=== PATIENT | male | born 1965 | race Caucasian/White ===

== ENCOUNTER 2018-02-09 11:24 | Observation (INO) | payer SELFPAY ==
[~2018-02-09] VITALS: Ht 170.2 cm; Wt 61.0 kg
[~2018-02-09 11:24] MED LIST: AMOX600S PO; CHLO25CA PO; RANI150 PO; Z.0.NO CURRENT MEDS; [UNRECOGNIZED DRUG - OTHER]
[2018-02-09] MEDS ORDERED: IOHEXOL 350 MG/ML 10 ML VIAL (for RAD DIAG) IVCONTRAST ONE (11:25)
[2018-02-09 11:48] VITALS: BP 155/97; PULSE 76; RESP 17; TEMP 99; O2SAT 96
[2018-02-09] MEDS ORDERED: SODIUM CHLOR 0.9% 1000 ML INJ 1,000 ML IV ONE (12:30)
[2018-02-09] MEDS ORDERED: TETANUS/DIPHTHERIA TOXOID ADULT 0.5 ML VIAL IM ONE (12:30)
[2018-02-09 12:56] LABS: AUTOMATED NEUTROPHIL # 9.9 TH/MM3 (1.8-7.7); BASOPHIL # 0.1 TH/MM3 (0-0.2); BASOPHIL % 0.5 % (0.0-2.0); EOSINOPHIL # 0.1 TH/MM3 (0-0.4); EOSINOPHIL % 0.5 % (0.0-4.0); HEMATOCRIT 50.3 % (39.0-51.0); HEMOGLOBIN 17.3 GM/DL (13.0-17.0); LYMPH % 18.7 % (9.0-44.0); LYMPHOCYTE # 2.6 TH/MM3 (1.0-4.8); MEAN CELL VOLUME 101.8 FL (80.0-100.0); MEAN CORPUSCULAR HEMOGLOBIN 35.1 PG (27.0-34.0); MEAN CORPUSCULAR HGB CONC 34.5 % (32.0-36.0); MEAN PLATELET VOLUME 9.5 FL (7.0-11.0); MONO % 8.6 % (0.0-8.0); MONOCYTE # 1.2 TH/MM3 (0-0.9); NEUT % 71.7 % (16.0-70.0); PLATELET COUNT 267 TH/MM3 (150-450); RED BLOOD COUNT 4.94 MIL/MM3 (4.50-5.90); WHITE BLOOD COUNT 13.8 TH/MM3 (4.0-11.0)
[2018-02-09 13:04] VITALS: RESP 16; O2SAT 97
[2018-02-09 13:12] LABS: AST (GOT) 19 U/L (15-37); BICARBONATE 24.1 MEQ/L (21.0-32.0); BLOOD UREA NITROGEN 7 MG/DL (7-18); CALCIUM 9.8 MG/DL (8.5-10.1); CHLORIDE 102 MEQ/L (98-107); CREATININE 0.83 MG/DL (0.60-1.30); GLOMERULAR FILTRATION RATE 97 ML/MIN (>89); GLUCOSE,RANDOM 74 MG/DL (74-106); MAGNESIUM 1.9 MG/DL (1.5-2.5); SODIUM (NA) 140 MEQ/L (136-145)
[2018-02-09 13:13] LABS: ALT (GPT) 33 U/L (12-78)
--- NOTE | 2018-02-09 13:14 | PD ---
HPI Chief Complaint: Syncope/Near-Syncope Time Seen by Provider: 12:00 Travel History International Travel<30 days: No Contact w/Intl Traveler<30days: No Traveled to known affect area: No History of Present Illness HPI 53-year-old male that presents to the ED for evaluation of syncope and dizziness since Thursday. Per patient on Thursday he was working he started feeling dizzy. Per patient he got lightheaded and he was able to sit down and symptoms resolved. Continue working and he finishes work and when to a bar where he had a couple drinks. Per patient he was talking on the phone and that is all he remembers. Per patient he woke up on the floor. He denies any chest pain or shortness of breath. Denies anything relating to the symptoms. Per patient is been feeling "weird" since this has not been able to really get up or do any work because of this. No history of this in the past. Denies any medical history. Does smoke. Denies any history of cardiac disease. States having pain on his right eyelid. He does not know his last tetanus booster. No other medical issues. No drug use. He denies any other syncopal episodes since that time. Per patient he came here today because the symptoms of feeling "weird" I am not resolved when his friend was concerned about what could happen on the syncopal episode. PFSH Past Medical History Arthritis: No Asthma: No Autoimmune Disease: No Blood Disorders: No Anxiety: No Depression: No Heart Rhythm Problems: No Cancer: No Cardiovascular Problems: Yes High Cholesterol: No Chemotherapy: No Chest Pain: No Congestive Heart Failure: No COPD: No Cerebrovascular Accident: No Diabetes: No Diminished Hearing: No Endocrine: No GERD: No Glaucoma: No Genitourinary: No Headaches: No Hepatitis: No Hiatal Hernia: No Hypertension: No Immune Disorder: No Kidney Stones: No Musculoskeletal: No Neurologic: No Psychiatric: No Reproductive: No Respiratory: No Migraines: No Myocardial Infarction: No Radiation Therapy: No Renal Failure: No Seizures: No Sickle Cell Disease: No Sleep Apnea: No Thyroid Disease: No Ulcer: Yes Tetanus Vaccination: > 5 Years Past Surgical History Abdominal Surgery: No AICD: No Appendectomy: No Arteriovenous Shunt: No Cardiac Surgery: No Cholecystectomy: No Ear Surgery: No Endocrine Surgery: No Eye Surgery: No Genitourinary Surgery: No Gynecologic Surgery: No Insulin Pump: No Joint Replacement: No Oral Surgery: Yes (jaw) Pacemaker: No Thoracic Surgery: No Social History Alcohol Use: Yes (beer 12 pack per day) Tobacco Use: Yes (1 pack per day) Substance Use: Yes (marijuana) Allergies-Medications (Allergen,Severity, Reaction): Coded Allergies: No Known Allergies (Verified Allergy, Unknown, 02/09/18) Reported Meds & Prescriptions Reported Meds & Active Scripts Active No Active Prescriptions or Reported Medications Review of Systems Except as stated in HPI: all other systems reviewed are Neg Physical Exam Narrative GENERAL: SKIN: Warm and dry. HEAD: Atraumatic. Normocephalic. EYES: Pupils equal and round 4 mm reactive to light and accommodation. No scleral icterus. No injection or drainage. EOM intact bilaterally. Peripheral vision intact bilaterally. Patient does have bruising and swelling noted on the right orbit. Patient has a laceration which is about 1 cm on the temporal aspect which is already healing. Appears to be old. No sign of obvious purulence or mass noted. ENT: No nasal bleeding or discharge. Mucous membranes pink and moist. Tongue is midline. No uvula deviation. NECK: Trachea midline. No JVD. CARDIOVASCULAR: Regular rate and rhythm. No murmurs, S3, S4. RESPIRATORY: No accessory muscle use. Clear to auscultation. Breath sounds equal bilaterally. GASTROINTESTINAL: Abdomen soft, non-tender, nondistended. Hepatic and splenic margins not palpable. MUSCULOSKELETAL: Extremities without clubbing, cyanosis, or edema. No obvious deformities. Full range of motion of the upper and lower extremities bilaterally. 2+ pulses bilaterally. NEUROLOGICAL: Awake and alert. No obvious cranial nerve deficits. Motor grossly within normal limits. Five out of 5 muscle strength in the arms and legs. Normal speech. PSYCHIATRIC: Appropriate mood and affect; insight and judgment normal. Data Data Last Documented VS Vital Signs Date Time Temp Pulse Resp B/P (MAP) Pulse Ox O2 Delivery O2 Flow Rate FiO2 02/09/18 13:49 87 14 167/96 (119) 97 Room Air 02/09/18 11:48 99.0 Orders Orders Electrocardiogram (02/09/18 12:21) Complete Blood Count With Diff (02/09/18 12:21) Comprehensive Metabolic Panel (02/09/18 12:21) Ckmb (Isoenzyme) Profile (02/09/18 12:21) Troponin I (02/09/18 12:21) Magnesium (Mg) (02/09/18 12:21) Thyroid Stimulating Hormone (02/09/18 12:21) Chest, Single Ap (02/09/18 12:21) Ct Brain W/O Iv Contrast(Rout) (02/09/18 12:21) Iv Access Insert/Monitor (02/09/18 12:21) Ecg Monitoring (02/09/18 12:21) Oximetry (02/09/18 12:21) Orthostatic Vital Signs (02/09/18 12:21) Tetanus/Diphtheria Tox Adult (Tetanus/Di (02/09/18 12:30) Sodium Chlor 0.9% 1000 Ml Inj (Ns 1000 M (02/09/18 12:30) Ct Facial Bones W Iv Contrast (02/09/18 ) Iohexol 350 Inj (Omnipaque 350 Inj) (02/09/18 11:25) Clindamycin 600 Mg/Ns Premix (Cleocin 60 (02/09/18 16:00) Nicotine 14 Mg Patch.24 Hr (Habitrol 14 (02/09/18 16:45) Admit Order (Ed Use Only) (02/09/18 16:45) Labs Laboratory Tests Test 02/09/18 12:30 White Blood Count 13.8 TH/MM3 Red Blood Count 4.94 MIL/MM3 Hemoglobin 17.3 GM/DL Hematocrit 50.3 % Mean Corpuscular Volume 101.8 FL Mean Corpuscular Hemoglobin 35.1 PG Mean Corpuscular Hemoglobin Concent 34.5 % Red Cell Distribution Width 13.0 % Platelet Count 267 TH/MM3 Mean Platelet Volume 9.5 FL Neutrophils (%) (Auto) 71.7 % Lymphocytes (%) (Auto) 18.7 % Monocytes (%) (Auto) 8.6 % Eosinophils (%) (Auto) 0.5 % Basophils (%) (Auto) 0.5 % Neutrophils # (Auto) 9.9 TH/MM3 Lymphocytes # (Auto) 2.6 TH/MM3 Monocytes # (Auto) 1.2 TH/MM3 Eosinophils # (Auto) 0.1 TH/MM3 Basophils # (Auto) 0.1 TH/MM3 CBC Comment DIFF FINAL Differential Comment Blood Urea Nitrogen 7 MG/DL Creatinine 0.83 MG/DL Random Glucose 74 MG/DL Total Protein 8.3 GM/DL Albumin 4.0 GM/DL Calcium Level 9.8 MG/DL Magnesium Level 1.9 MG/DL Alkaline Phosphatase 172 U/L Aspartate Amino Transf (AST/SGOT) 19 U/L Alanine Aminotransferase (ALT/SGPT) 33 U/L Total Bilirubin 0.7 MG/DL Sodium Level 140 MEQ/L Potassium Level 3.5 MEQ/L Chloride Level 102 MEQ/L Carbon Dioxide Level 24.1 MEQ/L Anion Gap 14 MEQ/L Estimat Glomerular Filtration Rate 97 ML/MIN Total Creatine Kinase 100 U/L Troponin I LESS THAN 0.02 NG/ML Thyroid Stimulating Hormone 3rd Gen 0.739 uIU/ML MDM Medical Decision Making Medical Screen Exam Complete: Yes Emergency Medical Condition: Yes Medical Record Reviewed: Yes Interpretation(s) CBC & BMP Diagram 02/09/18 12:30 Total Protein 8.3 H, Albumin 4.0, Calcium Level 9.8, Magnesium Level 1.9, Alkaline Phosphatase 172 H, Aspartate Amino Transf (AST/SGOT) 19, Alanine Aminotransferase (ALT/SGPT) 33, Total Bilirubin 0.[address] 02/09/18 1221 Signed Impressions: CONCLUSION: Chest X-Ray 02/09/18 1221 Signed Impressions: CONCLUSION: No acute pulmonary infiltrates Maxillofacial CT 02/09/18 0000 Signed Impressions: CONCLUSION: troponin and CKMB negative EKG shows sinus rhythm with no sign of acute ischemia or arrhythmia read by me and attending. Differential Diagnosis Syncope versus dizziness versus head injury versus orthostatic hypotension versus cellulitis versus laceration versus normal exam Narrative Course 52-year-old male that presents to the ED for evaluation of syncope and head injury. Patient was properly examined and was found to have signs and symptoms appear to be consistent with head injury and syncope. Unclear etiology of the syncope as patient does not have really any medical history other than smoking history. He does not personally have risk factors for cardiac disease. At this time labs and imaging were ordered. Patient was given tetanus booster. Labs and imaging showed no sign of acute disease other than what appears to be pearly tonsillitis. Patient was on clindamycin. Case was discussed with my attending who recommends admission for syncope. Case discussed with Dr. Urbina who agreed to admission. Diagnosis Primary Impression: Syncope Qualified Codes: R55 - Syncope and collapse Additional Impression: Periorbital cellulitis Qualified Codes: L03.213 - Periorbital cellulitis Admitting Information Admitting Physician Requests: Observation Scripts No Active Prescriptions or Reported Meds Sunday Bose February 09, 2018 13:14
[2018-02-09 13:22] LABS: ALKALINE PHOSPHATASE 172 U/L (45-117); TOTAL BILIRUBIN ADULT 0.7 MG/DL (0.2-1.0); TOTAL PROTEIN 8.3 GM/DL (6.4-8.2); TROPONIN I LESS THAN 0.02 NG/ML (0.02-0.05)
--- NOTE | 2018-02-09 13:34 | RADRPT ---
EXAM DATE: 02/09/2018 1:10 PM EDT AGE/SEX: 52 years / Male INDICATIONS: Passed out 3 days ago, vertigo, some chest pain 1 month ago CLINICAL DATA: This is the patient's initial encounter. Patient reports that signs and symptoms have been present for 3 days and indicates a pain score of 0/10. MEDICAL/SURGICAL HISTORY: None. None. COMPARISON: No prior [facility] exams available for comparison. FINDINGS: A single AP view of the chest demonstrates the lungs to be symmetrically aerated without e vidence of mass, infiltrate or effusion. The cardiomediastinal contours are unremarkable. Osseous s tructures are intact. CONCLUSION: No acute pulmonary infiltrates Electronically signed by: Michael Spears MD 02/09/2018 1:33 PM EDT
[2018-02-09 13:49] VITALS: BP 167/96; PULSE 87; RESP 14; O2SAT 97
--- NOTE | 2018-02-09 14:03 | EKG ---
Date Performed: 02/09/2018 Time Performed: 12:00:24 PTAGE: 52 years EKG: Baseline artifact present Sinus rhythm NORMAL ECG I see no definite change although present EKG has significant artifact. DOCTOR: Chuck Garza Interpretating Date/Time 02/09/2018 14:02:29
--- NOTE | 2018-02-09 15:01 | RADRPT ---
EXAM DATE: 02/09/2018 2:51 PM EDT AGE/SEX: 52 years / Male INDICATIONS: SYNCOPAL EPISODE FELL AND HIT HEAD CLINICAL DATA: This is the patient's initial encounter. Patient reports that signs and symptoms have been present for 1 day and indicates a pain score of 0/10. MEDICAL/SURGICAL HISTORY: Cardiovascular disease. None. RADIATION DOSE: 43.10 CTDI (mGy) COMPARISON: No prior [facility] exams available for comparison. TECHNIQUE: CT of the head without contrast. Using automated exposure control and adjustment of the mA and/or kV according to patient size, radiation dose was kept as low as reasonably achievable to ob tain optimal diagnostic quality images. FINDINGS: Ventricles are symmetric and normal. No abnormal extra-axial fluid accumulation is identif ied. There is no evidence of intracranial mass or hemorrhage. There is nothing to suggest acute infar ction. Extracranial structures are benign in intact. CONCLUSION: No acute intracranial findings Electronically signed by: Rocael Marrero MD 02/09/2018 3:00 PM EDT
--- NOTE | 2018-02-09 15:47 | RADRPT ---
EXAM DATE: 02/09/2018 3:40 PM EDT AGE/SEX: 52 years / Male INDICATIONS: Fall right eye lid swelling, cellulitis CLINICAL DATA: This is the patient's initial encounter. Patient reports that signs and symptoms have been present for 1 day and indicates a pain score of 2/10. MEDICAL/SURGICAL HISTORY: Cardiovascular disease. None. RADIATION DOSE: 59.61 CTDI (mGy) COMPARISON: No prior [facility] exams available for comparison. TECHNIQUE: Contiguous images in the axial and coronal planes were obtained using helical multirow de tector technique with 71 ml Omnipaque 350 (iohexol) nonionic water-soluble contrast as a single exam dose. Using automated exposure control and adjustment of the mA and/or kV according to patient size , radiation dose was kept as low as reasonably achievable to obtain optimal diagnostic quality images . FINDINGS: There is subcutaneous edema and indurative changes in the soft tissues of the for head jean carlos [facility] bridge right periorbital and right cheek regions. No evidence of abscess. No evidence of postsepta l cellulitis changes in the right eye. The bony elements are intact without evidence of fracture or d estructive change. There is minimal polypoid mucosal disease in the facial sinuses, mainly left maxillary antrum. Mild n prieto septal deviation is present. CONCLUSION: 1. No evidence of acute bony process. 2. Superficial cellulitis of the periorbital region and right face. Electronically signed by: Rocael Marrero MD 02/09/2018 3:45 PM EDT
[2018-02-09] MEDS ORDERED: CLINDAMYCIN 600 MG/NS PREMIX 50 ML IV ONE (16:00)
[2018-02-09 16:33] VITALS: BP 162/104; PULSE 87; RESP 16; O2SAT 95
[2018-02-09] MEDS ORDERED: NICOTINE 14 MG/24 HR PATCH T-DERMAL ONE (16:45)
[2018-02-09] MEDS: SODIUM CHLOR 0.9% 1000 ML INJ 1,000 ML IV SCH (17:03)
--- NOTE | 2018-02-09 18:08 | RADRPT ---
EXAM DATE: 02/09/2018 5:59 PM EDT AGE/SEX: 52 years / Male INDICATIONS: Syncope. CLINICAL DATA: This is the patient's initial encounter. Patient reports that signs and symptoms have been present for 1 day and indicates a pain score of 0/10. MEDICAL/SURGICAL HISTORY: . Ulcer. Heartburn. Back problems. . Jaw surgery. COMPARISON: No prior [facility] exams available for comparison. VELOCITY PARAMETERS: ICA/CCA Ratio: Right 0.7 , Left 1.0 ICA: Right 72.5 cm/sec, Left 81.6 cm/sec CCA: Right 109.7 cm/sec, Left 83.8 cm/sec ECA: Right 91.9 cm/sec, Left 72.4 cm/sec Vertebral: Right 49.3 cm/sec antegrade, Left 62.5 cm/sec anterograde FINDINGS: Right Carotid: Minimal atherosclerotic plaquing in the carotid bulb. The waveforms are within enrrique l limits. Left Carotid: Minimal atherosclerotic plaquing in the carotid bulb. The waveforms are within normal limits. Other: None. CONCLUSION: 1. Minimal atherosclerotic plaquing in both carotid bulbs. 2. Otherwise negative. No sonographic or Doppler findings of a hemodynamically significant stenosis. Antegrade flow in both vertebral arteries. Electronically signed by: Rashaun Bella MD 02/09/2018 6:07 PM EDT
[2018-02-09 18:19] LABS: ALBUMIN 3.6 GM/DL (3.4-5.0); ALT (GPT) 29 U/L (12-78); AST (GOT) 17 U/L (15-37); BICARBONATE 28.7 MEQ/L (21.0-32.0); BLOOD UREA NITROGEN 6 MG/DL (7-18); CALCIUM 8.7 MG/DL (8.5-10.1); CHLORIDE 104 MEQ/L (98-107); CREATININE 0.81 MG/DL (0.60-1.30); GLOMERULAR FILTRATION RATE 100 ML/MIN (>89); GLUCOSE,RANDOM 116 MG/DL (74-106); SODIUM (NA) 141 MEQ/L (136-145)
[2018-02-09 18:22] LABS: ALKALINE PHOSPHATASE 157 U/L (45-117); TOTAL BILIRUBIN ADULT 0.8 MG/DL (0.2-1.0); TOTAL PROTEIN 7.5 GM/DL (6.4-8.2); TROPONIN I LESS THAN 0.02 NG/ML (0.02-0.05)
--- NOTE | 2018-02-09 18:27 | HHI.HP ---
[facility] Primary Care Physician No Primary Care Physician Admission Diagnosis acute syncope, periorbital cellulitis Diagnoses: Chief Complaint: Syncope Travel History International Travel<30 Days: No Contact w/Intl Traveler <30 Da: No Traveled to Known Affected Are: No History of Present Illness 52 years old male with no significant past medical history presented to the ED after he had a syncope. Patient stated he felt dizzy at home earlier today when he went home and started drinking about 3-4 drinks Plan: He did not remember anything after that, obviously patient blacked out and he hit his right sided face, he was found on the pavement of the backyard by his neighbor and brought to the hospital. Patient denied feeling any chest pain dizziness lightheaded or short of breath prior to the episodes, not sure how long he was unconscious patient does have ecchymosis and hematoma around his right cheek and laceration by the right eye. No obvious seizure like signs or postictal signs. Patient denied any significant past medical history no other associated syndrome. However he reported feeling funny in his heart about a month ago couple times but he said it went away Review of Systems All systems reviewed and was positive for what is mentioned in history of present illness otherwise negative Past Family Social History Past Medical History Patient denied having any history of hypertension hyperlipidemia on any other disease Past Surgical History Broken jaw repair in the past Allergies: Coded Allergies: No Known Allergies (Verified Allergy, Unknown, 02/09/18) Family History Review with the patient,not aware of significant medical history related to her problem runs in the family Social History Patient drinks up to 4 drinks a day, smoke a pack a day no drugs Physical Exam Vital Signs Vital Signs Date Time Temp Pulse Resp B/P (MAP) Pulse Ox O2 Delivery O2 Flow Rate FiO2 02/09/18 16:33 87 16 162/104 (123) 95 Room Air 02/09/18 13:49 87 14 167/96 (119) 97 Room Air 02/09/18 13:04 16 97 Room Air 02/09/18 12:02 98 Room Air 02/09/18 11:48 99.0 76 17 155/97 (116) 96 Physical Exam GENERAL: This is a well-nourished, well-developed patient, in no apparent distress. SKIN: No rashes, warm and dry HEAD: Ecchymosis and hematoma on the right cheek and around the eye with 1-1/2 cm laceration EYES: Pupils equal round and reactive. Extraocular motions intact. No scleral icterus. ENT: Nose without bleeding, or drainage, Airway patent. NECK: Trachea midline. Supple CARDIOVASCULAR: Regular rate and rhythm without murmurs, gallops, or rubs. RESPIRATORY: Fair air entry bilaterally. No wheezes, rales, or rhonchi. GASTROINTESTINAL: Abdomen soft, non-tender, nondistended. Positive bowel sounds MUSCULOSKELETAL: Extremities without clubbing, cyanosis, or edema. Pedal pulses appreciated NEUROLOGICAL: Awake and alert. Moves all extremity. Normal speech.no focal neurological deficit Laboratory Laboratory Tests Test 02/09/18 12:30 02/09/18 17:44 02/09/18 17:58 White Blood Count 13.8 Red Blood Count 4.94 Hemoglobin 17.3 Hematocrit 50.3 Mean Corpuscular Volume 101.8 Mean Corpuscular Hemoglobin 35.1 Mean Corpuscular Hemoglobin Concent 34.5 Red Cell Distribution Width 13.0 Platelet Count 267 Mean Platelet Volume 9.5 Neutrophils (%) (Auto) 71.7 Lymphocytes (%) (Auto) 18.7 Monocytes (%) (Auto) 8.6 Eosinophils (%) (Auto) 0.5 Basophils (%) (Auto) 0.5 Neutrophils # (Auto) 9.9 Lymphocytes # (Auto) 2.6 Monocytes # (Auto) 1.2 Eosinophils # (Auto) 0.1 Basophils # (Auto) 0.1 CBC Comment DIFF FINAL Differential Comment Blood Urea Nitrogen 7 6 Creatinine 0.83 0.81 Random Glucose 74 116 Total Protein 8.3 7.5 Albumin 4.0 3.6 Calcium Level 9.8 8.7 Magnesium Level 1.9 Alkaline Phosphatase 172 157 Aspartate Amino Transf (AST/SGOT) 19 17 Alanine Aminotransferase (ALT/SGPT) 33 29 Total Bilirubin 0.7 0.8 Sodium Level 140 141 Potassium Level 3.5 3.8 Chloride Level 102 104 Carbon Dioxide Level 24.1 28.7 Anion Gap 14 8 Estimat Glomerular Filtration Rate 97 100 Total Creatine Kinase 100 Troponin I LESS THAN 0.02 LESS THAN 0.02 Thyroid Stimulating Hormone 3rd Gen 0.739 Ethyl Alcohol Level LESS THAN 3 Urine Opiates Screen NEG Urine Barbiturates Screen NEG Urine Amphetamines Screen NEG Urine Benzodiazepines Screen NEG Urine Cocaine Screen NEG Urine Cannabinoids Screen POS Result Diagram: 02/09/18 1230 02/09/18 1744 Imaging Last Impressions Head CT 02/09/18 1221 Signed Impressions: CONCLUSION: Chest X-Ray 02/09/18 1221 Signed Impressions: CONCLUSION: No acute pulmonary infiltrates Maxillofacial CT 02/09/18 0000 Signed Impressions: CONCLUSION: Carotid Artery Ultrasound 02/09/18 0000 Signed Impressions: CONCLUSION: Caprini VTE Risk Assessment Caprini VTE Risk Assessment: No/Low Risk (score <= 1) Caprini Risk Assessment Model Point Value = 1 Point Value = 2 Point Value = 3 Point Value = 5 Age 41-60 Minor surgery BMI > 25 kg/m2 Swollen legs Varicose veins or History of unexplained or recurrent spontaneous Oral contraceptives or hormone replacement Sepsis (< 1 month) Serious lung disease, including pneumonia (< 1 month) Abnormal pulmonary function Acute myocardial infarction Congestive heart failure (< 1 month) History of inflammatory bowel disease Medical patient at bed rest Age 61-74 Arthroscopic surgery Major open surgery (> 45 min) Laparoscopic surgery (> 45 min) Malignancy Confined to bed (> 72 hours) Immobilizing plaster cast Central venous access Age >= 75 History of VTE Family history of VTE Factor V Leiden Prothrombin [id number] Lupus anticoagulant Anticardiolipin antibodies Elevated serum homocysteine Heparin-induced thrombocytopenia Other congenital or acquired thrombophilia Stroke (< 1 month) Elective arthroplasty Hip, pelvis, or leg fracture Acute spinal cord injury (< 1 month) Prophylaxis Regimen Total Risk Factor Score Risk Level Prophylaxis Regimen 0-1 Low Early ambulation 2 Moderate Order ONE of the following: *Sequential Compression Device (SCD) *Heparin 5000 units SQ BID 3-4 Higher Order ONE of the following medications: *Heparin 5000 units SQ TID *Enoxaparin/Lovenox 40 mg SQ daily (WT < 150 kg, CrCl > 30 mL/min) *Enoxaparin/Lovenox 30 mg SQ daily (WT < 150 kg, CrCl > 10-29 mL/min) *Enoxaparin/Lovenox 30 mg SQ BID (WT < 150 kg, CrCl > 30 mL/min) AND/OR *Sequential Compression Device (SCD) 5 or more Highest Order ONE of the following medications: *Heparin 5000 units SQ TID (Preferred with Epidurals) *Enoxaparin/Lovenox 40 mg SQ daily (WT < 150 kg, CrCl > 30 mL/min) *Enoxaparin/Lovenox 30 mg SQ daily (WT < 150 kg, CrCl > 10-29 mL/min) *Enoxaparin/Lovenox 30 mg SQ BID (WT < 150 kg, CrCl > 30 mL/min) AND *Sequential Compression Device (SCD) Assessment and Plan Assessment and Plan 52 years old male with no significant past medical history presented to the ED with Surrounding acute syncope unspecified neurogenic versus cardiogenic Patient has a history of palpitation or funny feeling in the heart Will run syncope protocol including Holter monitor, carotid ultrasound, 2D echo Cycle cardiac enzyme, CT of the head personally reviewed by me no hemorrhage Alcohol abuse Patient counseled will apply CIWA protocol Discussed Condition With Patient in ED physician Mamta Urbina MD February 09, 2018 18:27
[2018-02-09] MEDS ORDERED: FLUMAZENIL 0.5 MG/5 ML VIAL IV PUSH PRN (19:00)
[2018-02-09] MEDS ORDERED: LORazepam 2 MG/ML VIAL IV PUSH PRN ×4 (19:00)
[2018-02-09] MEDS ORDERED: LORazepam 1 MG TAB PO PRN (19:00)
[2018-02-09] MEDS ORDERED: LORazepam 2 MG TAB PO PRN (19:00)
[2018-02-09 19:49] VITALS: BP_SYST 158; BP_SYST 159; BP_SYST 164; BP_DIAS 101; BP_DIAS 108; BP_DIAS 114; PULSE 90; RESP 18; TEMP 98.9; O2SAT 94
[2018-02-09 20:00] VITALS: O2SAT 98
[2018-02-10] VITALS (7 sets, daily range): BP systolic 152–171; BP diastolic 86–100; PULSE 67–86; RESP 18; TEMP 97.7–98.7; O2SAT 94–97
[2018-02-10 03:59] LABS: AUTOMATED NEUTROPHIL # 5.5 TH/MM3 (1.8-7.7); BASOPHIL # 0.1 TH/MM3 (0-0.2); BASOPHIL % 0.9 % (0.0-2.0); EOSINOPHIL # 0.2 TH/MM3 (0-0.4); EOSINOPHIL % 1.7 % (0.0-4.0); HEMATOCRIT 45.4 % (39.0-51.0); HEMOGLOBIN 15.6 GM/DL (13.0-17.0); LYMPH % 27.6 % (9.0-44.0); LYMPHOCYTE # 2.6 TH/MM3 (1.0-4.8); MEAN CELL VOLUME 101.9 FL (80.0-100.0); MEAN CORPUSCULAR HGB CONC 34.4 % (32.0-36.0); MEAN PLATELET VOLUME 9.2 FL (7.0-11.0); MONO % 10.1 % (0.0-8.0); MONOCYTE # 0.9 TH/MM3 (0-0.9); NEUT % 59.7 % (16.0-70.0); PLATELET COUNT 229 TH/MM3 (150-450); RED BLOOD COUNT 4.46 MIL/MM3 (4.50-5.90); WHITE BLOOD COUNT 9.3 TH/MM3 (4.0-11.0)
[2018-02-10] MEDS: SODIUM CHLOR 0.9% 1000 ML INJ 1,000 ML IV SCH (04:41)
[2018-02-10] MEDS ORDERED: THIAMINE HCL 100 MG TAB PO SCH (09:00)
[2018-02-10] MEDS ORDERED: FOLIC ACID 1 MG TAB PO SCH (09:00)
[2018-02-10] MEDS ORDERED: MULTIVITAMIN TAB PO SCH (09:00)
[2018-02-10] MEDS ORDERED: amLODIPine BESYLATE 5 MG TAB PO ONE (09:15)
--- NOTE | 2018-02-10 09:18 | HHI.PR ---
Subjective Remarks Follow up on patient with syncopal episode. Patient seen and examined. Patient said he had an episode about a month ago with palpitations, chest pain and dizziness. He reports on Thursday he had 3 separate incidences of dizziness without any other associated symptoms. 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 Patient states he had 2 earlier incidences in the day with dizziness that occurred while he was walking around that resolved on its own after several minutes. He then after work went to a bar and had 3 drinks and walked outside to use his cell phone when he became dizzy then blacked out fell and hit the right side of his face on the ground. Again, he does not denies any associated cough, chest pain, palpitations, abdominal pain, nausea, vomiting , diaphoresis, tongue biting, weakness, numbness/tingling or bowel or bladder incontinence. Patient states he feels well this morning. He denies any medical complaints. Patient denies any personal or family medical history of heart disease. Objective Vitals Vital Signs Date Time Temp Pulse Resp B/P (MAP) Pulse Ox O2 Delivery O2 Flow Rate FiO2 02/10/18 07:19 98.5 77 18 161/99 (119) 94 02/10/18 04:37 98.0 67 18 152/95 (114) 95 02/10/18 01:02 97.7 80 18 171/97 (121) 97 02/09/18 20:00 98 02/09/18 19:49 98.9 90 18 159/101 (120) 94 158/108 (125) 164/114 (131) 02/09/18 18:36 02/09/18 16:33 87 16 162/104 (123) 95 Room Air 02/09/18 13:49 87 14 167/96 (119) 97 Room Air 02/09/18 13:04 16 97 Room Air 02/09/18 12:02 98 Room Air 02/09/18 11:48 99.0 76 17 155/97 (116) 96 I/O 02/09/18 02/09/18 02/09/18 02/10/18 02/10/18 02/10/18 07:00 15:00 23:00 07:00 15:00 23:00 Intake Total 1000 ml 50 ml 1008 ml Balance 1000 ml 50 ml 1008 ml Intake IV Total 1000 ml 50 ml 1008 ml # Voids 2 Result Diagram: 02/10/18 0332 02/09/18 1744 Imaging Last Impressions Head CT 02/09/18 1221 Signed Impressions: CONCLUSION: Chest X-Ray 02/09/18 1221 Signed Impressions: CONCLUSION: No acute pulmonary infiltrates Maxillofacial CT 02/09/18 0000 Signed Impressions: CONCLUSION: Carotid Artery Ultrasound 02/09/18 0000 Signed Impressions: CONCLUSION: Objective Remarks GENERAL: This is a well-nourished, well-developed male patient, in no apparent distress. Awake and alert. SKIN: Warm and dry. No generalized rash HEAD: Ecchymosis and hematoma on the right cheek and around the eye with 1-1/2 cm laceration EYES: Pupils equal round and reactive. Extraocular motions intact. No scleral icterus. ENT: Nose without bleeding, or drainage, Airway patent. MMM. NECK: Trachea midline. Supple. CARDIOVASCULAR: Regular rate and rhythm without murmurs, gallops, or rubs. RESPIRATORY: Fair air entry bilaterally. No wheezes, rales, or rhonchi. GASTROINTESTINAL: Abdomen soft, non-tender, nondistended. Positive bowel sounds x 4 quads. MUSCULOSKELETAL: Extremities without clubbing, cyanosis, or edema. Pedal pulses appreciated NEUROLOGICAL: Awake and alert. Moves all extremities spontaneously. Motor and sensory functions grossly intact. No focal neurological deficit. Normal speech. PSYCHIATRIC: Calm and cooperative with examination A/P Assessment and Plan 52-year-old male without any significant past medical history presented to the ED with dizziness followed by acute syncopal episode. 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 Does not appear toxic -White count is now within normal limits Superficial cellulitis right periorbital area and face s/p fall with right sided facial contusion Maxillofacial CT reveals no evidence of acute bony process, superficial cellulitis of the periorbital region and right face Given dose of IV clindamycin in the ED -Continue on Bactrim DS 1 p.o. twice daily 7 days Hypertension, uncontrolled. BP running 160s/110s Patient has no documented history of hypertension -Begin Norvasc 5 mg daily -Discontinue IV fluids -Continue to monitor BP and adjust treatment accordingly Macrocytosis, suspect secondary to alcohol use/abuse Ongoing tobaccoism -Discussed smoking cessation Polysubstance abuse Alcohol abuse Urine drug screen positive for cannabis Counseled on cessation -[facility] protocol -Multivitamin/thiamine/folate daily -Monitor for signs of alcohol withdrawal DVT prophylaxis -ambulation 1605 2D echo resulted showing EF 55-60%. Normal left ventricular size. Wall thickness is measured at the upper limits of normal. No regional wall motion abnormalities are present. Discharge patient to home Condition on discharge: Improved Heart healthy diet as tolerated Ad Georgina activity Strongly encourage alcohol and marijuana cessation Rx written: Norvasc 5mg, multivitamin, thiamine, folate daily and Bactrim po BID x 7 days Follow-up with primary care physician Discharge Planning Likely will discharge later today pending echo and EEG results and PT evaluation /recommendations Tena Arauz February 10, 2018 09:18
[2018-02-10] MEDS ORDERED: THIA100 PO (09:23)
[2018-02-10] MEDS ORDERED: FOLI1TAB6 PO (09:23)
[2018-02-10] MEDS ORDERED: AMLO5 PO (09:23)
[2018-02-10] MEDS ORDERED: THERTAB15 PO (09:23)
[2018-02-10] MEDS ORDERED: SULF1TAB23 PO (09:23)
--- NOTE | 2018-02-10 15:34 | ECHRPT ---
Indication: SYNCOPE CONCLUSIONS The left ventricular systolic function is normal with an estimated ejection fraction in the range of 55-60%. Normal left ventricular size. Wall thickness is measured at the upper limits of normal. No regional wall motion abnormalities are present. Structurally normal mitral valve. [id number] mitral valve regurgitation. Structurally normal tricuspid valve. There is trace tricuspid valve regurgitation. The estimated pulmonary arterial pressure is 29.2 mmHg. BP: / HR: Rhythm: Sinus MEASUREMENTS (Male / Female) Normal Values Technical Quality:Good 2D ECHO LV Diastolic Diameter PLAX 3.5 cm 4.2 - 5.9 / 3.9 - 5.3 cm LV Systolic Diameter PLAX 2.4 cm IVS Diastolic Thickness 1.2 cm 0.6 - 1.0 / 0.6 - 0.9 cm LVPW Diastolic Thickness 1.2 cm 0.6 - 1.0 / 0.6 - 0.9 cm LV Relative Wall Thickness 0.7 RV Internal Dim ED PLAX 3.0 cm LVOT Diameter 2.1 cm LA Systolic Diameter LX 3.5 cm 3.0 - 4.0 / 2.7 - 3.8 cm LV Ejection Fraction MOD 4C 59.8 % LV Ejection Fraction 4C AL 62.4 % M-MODE Aortic Root Diameter MM 3.1 cm LA Systolic Diameter MM 3.1 cm LA Ao Ratio MM 1.0 AV Cusp Separation MM 2.2 cm DOPPLER AV Peak Velocity 92.3 cm/s AV Peak Gradient 3.4 mmHg LVOT Peak Velocity 79.5 cm/s LVOT Peak Gradient 2.5 mmHg AV Area Cont Eq pk 3.0 cm MV Area PHT 3.1 cm Mitral E Point Velocity 65.2 cm/s Mitral A Point Velocity 57.3 cm/s Mitral E to A Ratio 1.1 LV E' Lateral Velocity 9.8 cm/s Mitral E to LV E' Lateral Ratio 6.6 LV E' Septal Velocity 8.1 cm/s Mitral E to LV E' Septal Ratio 8.1 TR Peak Velocity 219.0 cm/s TR Peak Gradient 19.2 mmHg Right Atrial Pressure 10.0 mmHg Pulmonary Artery Systolic Pressu 29.2 mmHg Right Ventricular Systolic Press 29.2 mmHg PV Peak Velocity 77.4 cm/s PV Peak Gradient 2.4 mmHg FINDINGS LEFT VENTRICLE The left ventricular systolic function is normal with an estimated ejection fraction in the range of 55-60%. Normal left ventricular size. Wall thickness is measured at the upper limits of normal. No regional wall motion abnormalities are present. RIGHT VENTRICLE Normal right ventricular size and systolic function. LEFT ATRIUM The left atrial size is normal. RIGHT ATRIUM The right atrial size is normal. ATRIAL SEPTUM Normal atrial septal thickness without atrial level shunting by limited color doppler interrogation. AORTA The aortic root and proximal ascending aorta are normal in size on limited imaging. MITRAL VALVE Structurally normal mitral valve. [id number] mitral valve regurgitation. AORTIC VALVE Trileaflet aortic valve. No aortic valve stenosis or regurgitation. TRICUSPID VALVE Structurally normal tricuspid valve. There is trace tricuspid valve regurgitation. The estimated pulmonary arterial pressure is 29.2 mmHg. PULMONARY VALVE No pulmonary valve regurgitation or stenosis. VESSELS The inferior vena cava is normal in size. PERICARDIUM No pericardial effusion. Zane Rviera MD, FACC (Electronically Signed) Final Date:10 Feb 2018 15:34
[2018-02-10] MEDS ORDERED: NICOTINE 21 MG/24 HR PATCH T-DERMAL SCH (16:00)
[2018-02-10] MEDS ORDERED: SULFAMETHOXAZOLE-TRIMETHOPRIM DS 800-160 MG TAB PO SCH (21:00)
--- NOTE | 2018-02-11 08:03 | MG ---
cc: Joseph Benítez MD EEG NUMBER: [id number] INDICATIONS: Lightheaded, syncope. DESCRIPTION: The recording shows diffuse alpha and beta rhythms. The recording overall is synchronous and symmetrical. A posterior rhythm to 12 Hz is seen at 40-50 microvolts. No hemisphere asymmetry is noted. No epileptiform or seizure activity is seen. Some bitemporal muscle artifact is noted at times. Photic stimulation is performed with symmetric posterior driving at 12 Hz. Hyperventilation is performed without change in the background. IMPRESSION: A normal awake electroencephalogram. No evidence for a focal or diffuse abnormality. Joseph Benítez MD DJM/DL , 07:52 AM , 08:02 AM
[2018-02-11] MEDS ORDERED: REMOVE OLD PATCH T-DERMAL SCH (09:00)
[2018-02-11] MEDS ORDERED: amLODIPine BESYLATE 5 MG TAB PO SCH (09:00)
--- NOTE | 2018-02-17 14:39 | HM ---
Date Performed: 02/10/2018 Time Performed: 17:27:00 HOOKUP DATE: 02/10/18 05:27:00 PM Wed ANALYSIS START TIME: 02/10/2018 5:32:00 PM ANALYSIS END TIME: 02/11/2018 11:26:24 AM PATIENT AGE: 52 PATIENT HEIGHT PATIENT WEIGHT DRUG LIST PATIENT DIAGNOSIS: ACUTE SYNCOPE TEST NARRATIVE: The patient's average heart rate was 100 BPM. Heart rates greater than 120 BPM were noted 18% of the time. No episodes of bradycardia were noted. No pauses exceeding 2.0 s econds were noted. 1 ventricular ectopics, which represented < 1% of the total beat count, were n oted. The highest ventricular ectopic frequency occurred from 08:00 PM to 09:00 PM Wed. During this time 1 VE(s) occurred. Ventricular ectopics were observed as 1 isolated beat(s) only. No couplets or runs were noted. 34 supraventricular ectopics, which represented < 1% of the total beat count, were noted. The highest supraventricular ectopic frequency occurred from 11:00 AM to 12:00 PM Rebekah. During this time 13 SVE(s) occurred. Multiple episodes of ST depression (defined as -1.0 mm or m ore) were noted in channel 1. The maximum depression of -5.7 mm occurred at 11:01:55 AM Rebekah. No ep isodes of ST depression (defined as -1.0 mm or more) were noted in channel 2. No episodes of ST depr ession (defined as -1.0 mm or more) were noted in channel 3. TEST INTERPRETATION: Sinus rhythm Paroxsymal sustained supraventricular tachycardia (maximum rate 222 bpm) Signed by : Zane Rivera
== END 2018-02-10 19:05 | disposition home or self-care (01) ==
LOC: NEPC 11:24 → NEDA 16:47 → NEPFCDU 18:25
PROVIDERS: ADMIT Internal Medicine; ATTEND Internal Medicine
DX: L03.213 Periorbital cellulitis (principal); S00.83XA Contusion of other part of head, initial encounter; R55 Syncope and collapse; R42 Dizziness and giddiness; F17.210 Nicotine dependence, cigarettes, uncomplicated; D75.89 Other specified diseases of blood and blood-forming organs; F12.90 Cannabis use, unspecified, uncomplicated; W19.XXXA Unspecified fall, initial encounter; R79.1 Abnormal coagulation profile; R79.89 Other specified abnormal findings of blood chemistry
CPT/HCPCS: 70450; 70487; 71045; 80053; 80307; 82550; 83735; 84443; 84484; 85025; 90471; 90714; 93005; 93306; 93880; 95819; 96360; 96361; 97161; 99285; G0378; G8987; G8988; J7030; Q9967; 93225; 93226